=== PATIENT | female | born 1985 | race Caucasian/White ===

== ENCOUNTER 2017-02-13 22:54 | Emergency (ER) | payer OTHER ==
[2017-02-13 23:06] VITALS: BP 125/68; PULSE 115; TEMP 98; BMI 22.3
[2017-02-14] MEDS ORDERED: SODIUM CHLORIDE 1,000 ML IV STA ×2 (00:53→01:37)
--- NOTE | 2017-02-14 00:54 | PDOC ---
History of Present Illness - General Chief Complaint: Nausea/Vomiting Stated Complaint: NAUSEA/VOMITING Time Seen by Provider: 02/14/17 00:36 - History of Present Illness Initial Comments: 02/14/17 01:43 32-year-old female complaining of generalized abdominal pain, nausea, vomiting, and diarrhea since 9 PM. Patient reported eating chicken salad at 4 PM. Denies any sick contacts. Patient reports some bloody stool. Past History - Past Medical History Allergies/Adverse Reactions: Allergies Allergy/AdvReac Type Severity Reaction Status Date / Time No Known Allergies Allergy Verified 02/13/17 23:06 COPD: No Other medical history: recent vaginal delivery - Suicide/Smoking/Psychosocial Hx Smoking History: Never smoked Review of Systems - Review of Systems Able to Perform ROS?: Yes Is the patient limited [place]ian proficient: No ABD/GI: Yes: Blood Streaked Bowels, Diarrhea, Nausea, Vomiting, Abdominal cramping *Physical Exam - Vital Signs Last Vital Signs Temp Pulse Resp BP Pulse Ox 98 F 115 H 20 125/68 99 02/13/17 23:04 02/13/17 23:04 02/13/17 23:04 02/13/17 23:04 02/13/17 23:04 - Physical Exam General Appearance: Yes: Appropriately Dressed Respiratory/Chest: positive: Lungs Clear, Normal Breath Sounds Gastrointestinal/Abdominal: positive: Tender (generalized LUQ > than rest), Soft , Increased Bowel Sounds Rectal Exam: positive: heme negative stool, hemorrhoids (small hemorroid at 10 o Clock location) Extremity: positive: Normal Capillary Refill, Normal Inspection Integumentary: positive: Normal Color, Dry, Warm Neurologic: positive: Fully Oriented, Alert Heart Score/ECG Review - ECG Intrepretation Rhythm: Regular Rhythm Comment:: 02/14/17 01:43 Sinus rhythm with marked sinus arrythmia ED Treatment Course - LABORATORY CBC & Chemistry Diagram: 02/14/17 00:52 02/14/17 00:52 Progress Note - Progress Note Progress Note: Gastroenteritis P: CBC CMP IVF Zofran Medical Decision Making - Medical Decision Making 02/14/17 03:27 Patient alert. reports feeling better. tolerating PO water. BRAT diet and strict return precautions reviewed. *DC/Admit/Observation/Transfer Diagnosis at time of Disposition: Gastroenteritis - Discharge Dispostion Disposition: HOME - Referrals Referrals: Karen Parisi [Primary Care Provider] - - Patient Instructions Printed Discharge Instructions: DI for Vomiting -- Adult Additional Instructions: Drink plenty of fluids start a BRAT (bananas, rice, apples and toast)diet. wash hands well follow up with your doctor as soon as possible. - Post Discharge Activity
[2017-02-14] MEDS ORDERED: ONDANSETRON 4 MG/2 ML VIAL IVPUSH ONE (01:00)
[2017-02-14] MEDS ORDERED: ONDANSETRON 4 MG/2 ML VIAL ONE (01:02)
[2017-02-14 01:10] LABS: BASOPHIL 0.1 % (0-2.0); EOSINOPHIL 0.5 % (0-4.5); MCH 26.7 pg (25.7-33.7); MCHC 33.6 g/dl (32.0-36.0); MEAN CELL VOLUME 79.6 fl (80-96); MEAN PLT VOLUME 7.4 fl (7.5-11.1); NEUTROPHILS 87.3 % (42.8-82.8); PLATELET COUNT 176 K/MM3 (134-434); RDW 17.4 % (11.6-15.6); WHITE BLOOD COUNT 10.4 K/mm3 (4.0-10.0)
[2017-02-14 01:28] LABS: ALBUMIN 4.4 g/dl (3.4-5.0); ANION GAP 10 (8-16); CALCIUM 9.1 mg/dL (8.5-10.1); CO2 25 mmol/L (21-32); CREATININE 1.1 mg/dL (0.55-1.02); GLUCOSE,RANDOM 137 mg/dL (74-106); SGPT/ALT 52 U/L (12-78)
[2017-02-14 01:29] LABS: ALK PHOS 106 U/L (45-117); TOT PROT 7.9 g/dl (6.4-8.2)
[2017-02-14 01:35] LABS: SGOT/AST 31 U/L (15-37)
[2017-02-14 03:10] LABS: URINE APPEARANCE SLCLOUDY; URINE BILIRUBIN NEGATIVE (NEGATIVE); URINE BLOOD NEGATIVE (NEGATIVE); URINE COLOR YELLOW; URINE GLUCOSE (UA) NEGATIVE (NEGATIVE); URINE KETONE TRACE (NEGATIVE); URINE LEUK ESTERASE NEGATIVE (NEGATIVE); URINE NITRITE NEGATIVE (NEGATIVE); URINE PROTEIN NEGATIVE (NEGATIVE); URINE UROBILINOGEN NEGATIVE mg/dL (0.2-1.0)
[2017-02-14 09:17] LABS: URINE LEUK ESTERASE NEGATIVE (NEGATIVE)
--- NOTE | 2017-02-14 14:33 | EKG ---
Test Reason : Blood Pressure : / mmHG Vent. Rate : 088 BPM Atrial Rate : 088 BPM P-R Int : 132 ms QRS Dur : 076 ms QT Int : 372 ms P-R-T Axes : 063 077 064 degrees QTc Int : 450 ms SINUS RHYTHM WITH MARKED SINUS ARRHYTHMIA POSSIBLE LEFT ATRIAL ENLARGEMENT BORDERLINE ECG NO PREVIOUS ECGS AVAILABLE Confirmed by JAYMIE SWANSON MD ([id number]) on 02/14/2017 2:33:29 PM Referred By: Confirmed By:JAYMIE SWANSON MD
== END 2017-02-14 03:52 | disposition home or self-care (01) ==
LOC: JER 22:54
PROC: 3E033GC Introduction of Other Therapeutic Substance into Peripheral Vein, Percutaneous Approach (ICD-10-PCS; principal; 2017-02-13)
PROC: 3E0337Z Introduction of Electrolytic and Water Balance Substance into Peripheral Vein, Percutaneous Approach (ICD-10-PCS; 2017-02-13)
DX: K52.9 Noninfective gastroenteritis and colitis, unspecified (principal)
CPT/HCPCS: 36415; 80053; 81003; 82272; 83690; 84703; 85025; 93005; 93010; 99283-25